=== PATIENT | female | born 1945 ===

== ENCOUNTER 2023-04-04 09:11 | Outpatient (CLI) | payer OTHER ==
[2023-04-04 10:26] LABS: HEMATOCRIT 36.9 % (36.0-45.00); HEMOGLOBIN 12.9 g/dL (12.0-15.00); MEAN CELL VOLUME 100.5 fL (80.00-100.00); MEAN CORPUSCULAR HGB CONC 34.8 g/dl (32.0-36.0); RED BLOOD COUNT 3.67 M/uL (4.00-6.00)
[2023-04-04 10:47] LABS: INR 1.23; PARTIAL THROMBOPLASTIN TIME 27.7 SECONDS (22.0-34.0); PROTHROMBIN TIME 12.7 SECONDS (9.0-11.5)
[2023-04-04 11:05] LABS: % SATURACION 103.7 % (15-50); ALBUMIN 3.1 gm/dL (3.4-5.0); BILIRUBIN TOTAL 2.01 mg/dL (0.3-1.2); CALCIUM 9.8 mg/dL (8.5-10.1); CREATININE SERUM 0.62 mg/dL (0.55-1.02); GFR 93.59; GLOBULINA 4.7 G/DL (2.4-3.5); POTASSIUM 3.74 mEq/L (3.5-5.1); TOTAL PROTEIN 7.8 gm/dL (6.4-8.2); TSH 1.48 uIU/mL (0.358-3.74)
[2023-04-04 11:26] LABS: FOLIC ACID 18.67 ng/ml (4.78-20)
[2023-04-04 11:27] LABS: FERRITIN 885.6 NG/ML (8-252)
[2023-04-04 11:31] LABS: PLATELET COUNT 59 K/uL (150-450)
[2023-04-05 08:07] LABS: ALPHA FETO PROTEIN 3.1 ng/mL (0.0-9.2)
[2023-04-05 11:40] LABS: MANUAL PLATELET COUNT 148
[2023-04-05 11:45] LABS: PLATELET ESTIMATE DECREASED (NORMAL)
[2023-04-05 12:08] LABS: CA 15-3 42.5 U/mL (0.0-25.0)
== END 2023-04-04 09:12 | disposition home or self-care (01) ==
LOC: LAB 09:11
PROVIDERS: ATTEND Internal Medicine Hematology & Oncology
DX: D69.6 Thrombocytopenia, unspecified (principal); D51.3 Other dietary vitamin B12 deficiency anemia; R94.5 Abnormal results of liver function studies; K74.69 Other cirrhosis of liver; K70.0 Alcoholic fatty liver